=== PATIENT | male | born 1945 | race Caucasian/White ===

== ENCOUNTER → 2017-05-17 | Outpatient (CLI) | payer OTHER ==
--- NOTE | 2017-05-21 09:43 | RADRPT ---
EXAM DATE/TIME: 05/17/2017 11:54 [facility] COMPARISON : No previous studies available for comparison. INDICATIONS : Consult for LEFT renal cryo-ablation The patient's MRI of the abdomen from [facility] dated March 05, 2017 r eveals a 2.5 cm solid heterogeneous mass arising from the lower pole of the left kidney. The lesion d oes appear appropriate for and amenable to biopsy with concomitant cryoablation treatment which is re commended. The patient will be scheduled as requested. Mello Dejesus MD on May 21, 2017 at 9:33 Board Certified Radiologist. This report was verified electronically.
== END ==
LOC: HRAD 11:16
PROVIDERS: ATTEND Urology
DX: N28.89 Other specified disorders of kidney and ureter (principal)

== ENCOUNTER 2017-06-01 05:59 | Day surgery (SDC) | payer OTHER ==
[2017-06-01] VITALS (9 sets, daily range): BP systolic 124–172; BP diastolic 69–85; PULSE 69–107; RESP 16–20; TEMP 97.7–98.2; O2SAT 93–99
[~2017-06-01] VITALS: Ht 165.1 cm; Wt 70.5 kg
[2017-06-01] MEDS ORDERED: INSU1.2I SQ (06:41)
[2017-06-01] MEDS ORDERED: LOSA100T2 PO (06:41)
[2017-06-01] MEDS ORDERED: ATOR20TA15 PO (06:41)
[2017-06-01] MEDS ORDERED: AMLO10TA2 PO (06:41)
[2017-06-01] MEDS ORDERED: METF1000 PO (06:41)
[2017-06-01] MEDS ORDERED: CENTCHW4 CHEW (06:41)
[2017-06-01] MEDS ORDERED: HYDR-755 PO (06:41)
[2017-06-01] MEDS ORDERED: NOVOLOGP2 SQ (06:41)
[2017-06-01] MEDS ORDERED: FENO2.5C PO (06:41)
[2017-06-01] MEDS ORDERED: INSULIN HUMAN REGULAR 1,000 UNITS/10 ML VIAL SQ PRN (07:00)
[2017-06-01] MEDS ORDERED: SODIUM CHLORID 0.9% 500 ML IV PRN (07:00)
[2017-06-01] MEDS ORDERED: SODIUM CHLOR 0.9% 1000 ML INJ 1,000 ML IV SCH (07:00)
[2017-06-01] MEDS ORDERED: METOPROLOL TARTRATE 25 MG TAB PO PRN (07:00)
[2017-06-01] MEDS ORDERED: POVIDONE IODINE 5% (ANTISEPSIS KIT) 4 APPLICATIONS EACH NARE PRN (07:00)
[2017-06-01] MEDS ORDERED: LACTATED RINGER'S 1000 ML IV PRN (07:00)
[2017-06-01] MEDS ORDERED: CHLORHEXIDINE GLUCONATE 2 % 1 PACK (2 CLOTHS) TOPICAL PRN (07:00)
[2017-06-01 07:10] LABS: BASOPHIL # 0.1 TH/MM3 (0-0.2); BASOPHIL % 0.5 % (0.0-2.0); EOSINOPHIL # 0.5 TH/MM3 (0-0.4); EOSINOPHIL % 4.4 % (0.0-4.0); HEMATOCRIT 38.2 % (39.0-51.0); LYMPH % 24.1 % (9.0-44.0); MEAN CELL VOLUME 63.5 FL (80.0-100.0); MEAN CORPUSCULAR HEMOGLOBIN 19.4 PG (27.0-34.0); MEAN CORPUSCULAR HGB CONC 30.5 % (32.0-36.0); MONO % 6.2 % (0.0-8.0); NEUT % 64.8 % (16.0-70.0); PLATELET COUNT 487 TH/MM3 (150-450); RED BLOOD COUNT 6.02 MIL/MM3 (4.50-5.90); RED CELL DISTRIBUTION WIDTH 15.3 % (11.6-17.2); WHITE BLOOD COUNT 12.4 TH/MM3 (4.0-11.0)
[2017-06-01 07:12] LABS: HEMO FLAGS AUTO DIFF
[2017-06-01] MEDS ORDERED: ceFAZolin 2 GM PREMIX 50 ML IV SCH (07:15)
[2017-06-01 07:21] LABS: APTT (PATIENT) 28.5 SEC (24.3-30.1); PROTHROMBIN TIME - PATIENT 10.9 SEC (9.8-11.6)
[2017-06-01 07:22] LABS: BICARBONATE 26.2 MEQ/L (21.0-32.0); POTASSIUM 4.1 MEQ/L (3.5-5.1)
[2017-06-01 07:41] LABS: BASOPHILS 1 % (0-2); EOSINOPHILS 8 % (0-4); METAMYELOCYTES 4 % (0-1); MYELOCYTES 2 % (0-0); NEUTROPHIL # MANUAL DIFF 7.9 TH/MM3 (1.8-7.7); POLYS (SEG NEUTROPHILS) 58 % (16-70); WBC DIFF SAMPLE 100
[2017-06-01 07:42] LABS: SCAN/DIFF FINAL DIFF MANUAL
[2017-06-01 07:43] LABS: OVALOCYTES 1+ (NORMAL); PLATELET ESTIMATE SMEAR HIGH (NORMAL); PLATELET MORPHOLOGY NORMAL (NORMAL)
[2017-06-01 07:44] LABS: ACANTHOCYTES OCC (NORMAL); KERATOCYTES OCC (NORMAL)
[2017-06-01] MEDS ORDERED: LIDOCAINE 1%/EPINEPHrine 1:100,000 SOLN 20 ML VIAL ONE (08:30)
--- NOTE | 2017-06-01 08:43 | EKG ---
Date Performed: 06/01/2017 Time Performed: 07:19:45 PTAGE: 71 years EKG: Sinus rhythm POSSIBLE INFERIOR MYOCARDIAL INFARCTION , PROBABLY OLD BORDERLINE ECG NO PREVIOUS TRACING DOCTOR: Tyler Da Silva Interpretating Date/Time 06/01/2017 08:41:53
--- NOTE | 2017-06-01 13:28 | PD.RAD ---
Post CT Procedure Prog Note Pre Procedure Diagnosis: (1) Renal carcinoma (2) Left renal mass Post Procedure Diagnosis: (1) Renal carcinoma (2) Left renal mass Procedure Date: Jun 01, 2017 Supervising Radiologist: Mello Dejesus Anesthesia: General Plan of Activity Patient to Unit: PACU Patient Condition: Good See PACS Report for procedural detail/treatment Mello Dejesus MD Jun 01, 2017 13:28
[2017-06-01] MEDS ORDERED: HYDROmorphone HCL 2 MG TAB PO PRN (13:30)
[2017-06-01] MEDS ORDERED: DO NOT ADM ANY ANTICOAGULANT DRUGS PRN (13:30)
[2017-06-01 14:18] LABS: BASOPHIL # 0.1 TH/MM3 (0-0.2); BASOPHIL % 0.3 % (0.0-2.0); EOSINOPHIL # 0.1 TH/MM3 (0-0.4); EOSINOPHIL % 0.4 % (0.0-4.0); HEMATOCRIT 33.8 % (39.0-51.0); LYMPHOCYTE # 1.1 TH/MM3 (1.0-4.8); MEAN CELL VOLUME 64.1 FL (80.0-100.0); MEAN CORPUSCULAR HEMOGLOBIN 19.4 PG (27.0-34.0); MEAN CORPUSCULAR HGB CONC 30.3 % (32.0-36.0); MONO % 2.1 % (0.0-8.0); NEUT % 92.2 % (16.0-70.0); PLATELET COUNT 450 TH/MM3 (150-450); RED BLOOD COUNT 5.27 MIL/MM3 (4.50-5.90); RED CELL DISTRIBUTION WIDTH 15.2 % (11.6-17.2); WHITE BLOOD COUNT 22.8 TH/MM3 (4.0-11.0)
[2017-06-01 14:21] LABS: HEMO FLAGS AUTO DIFF
[2017-06-01 14:49] LABS: BANDS 8 % (0-6); EOSINOPHILS 1 % (0-4); METAMYELOCYTES 1 % (0-1); PLATELET ESTIMATE SMEAR NORMAL (NORMAL); PLATELET MORPHOLOGY NORMAL (NORMAL); POLYS (SEG NEUTROPHILS) 83 % (16-70); SCAN/DIFF FINAL DIFF MANUAL; WBC DIFF SAMPLE 100
[2017-06-01 14:50] LABS: OVALOCYTES 1+ (NORMAL)
[2017-06-01 16:07] LABS: AUTOMATED NEUTROPHIL # 24.5 TH/MM3 (1.8-7.7); BASOPHIL # 0.1 TH/MM3 (0-0.2); BASOPHIL % 0.2 % (0.0-2.0); EOSINOPHIL % 0.1 % (0.0-4.0); LYMPH % 4.1 % (9.0-44.0); LYMPHOCYTE # 1.1 TH/MM3 (1.0-4.8); MEAN CELL VOLUME 63.1 FL (80.0-100.0); MEAN CORPUSCULAR HEMOGLOBIN 19.1 PG (27.0-34.0); MEAN CORPUSCULAR HGB CONC 30.3 % (32.0-36.0); MONO % 2.4 % (0.0-8.0); NEUT % 93.2 % (16.0-70.0); PLATELET COUNT 430 TH/MM3 (150-450); RED BLOOD COUNT 5.22 MIL/MM3 (4.50-5.90); WHITE BLOOD COUNT 26.3 TH/MM3 (4.0-11.0)
--- NOTE | 2017-06-01 16:08 | RADRPT ---
EXAM DATE/TIME: 06/01/2017 10:12 INDICATIONS : Left renal mass. Anesthesia and pain control was provided by the Anesthesia department. Prophylactic antibiotics were administered with appropriate pre-procedure timing. DEVICE(S): 1.) PERC 17 cryoablation probes x4 MEDICAL HISTORY : Hypertension. Diabetes mellitus type 2. Renal insufficiency, chronic. SURGICAL HISTORY : None. ENCOUNTER: Initial ACUITY: 1 day PAIN SCORE: 0/10 LOCATION: Left flank PROCEDURE : 1. CT guided cryoablation. Under sterile conditions and using aseptic technique with CT guidance the mass was localized and sati sfactory approach was taken to access the lesion. Using automated exposure control and adjustment of the mA and/or kV according to patient size, radiation dose was kept as low as reasonably achievable to obtain optimal diagnostic quality images. DICOM format image data is available electronically for review and comparison. [employer] Cryoprobes were employed using percutaneous technique employing the prescribed probes. A total of 4 probe were placed. A freeze-thaw, freeze-thaw technique was employed and serial imaging demonstrated an ice ball encompassing the entire lesion. Post procedure images demonstrate expected postoperative changes with mild posterior perinephric hematoma. The patient was rescanned 5 minutes following the initial post procedure scan to document stability of the hematoma. The patient tolerate d the procedure well and was taken to anesthesia recovery in stable satisfactory condition. CONCLUSION: CT guided cryoablation treatment of left renal mass as described in detail above. A small perinephric hematoma resulted during the treatment. Mello Dejesus MD on June 01, 2017 at 16:01 Board Certified Radiologist. This report was verified electronically.
[2017-06-01 16:09] LABS: HEMO FLAGS AUTO DIFF
[2017-06-01 16:40] LABS: BANDS 9 % (0-6); MYELOCYTES 3 % (0-0); NEUTROPHIL # MANUAL DIFF 24.7 TH/MM3 (1.8-7.7); POLYS (SEG NEUTROPHILS) 82 % (16-70); SCAN/DIFF FINAL DIFF MANUAL; WBC DIFF SAMPLE 100
[2017-06-01 16:43] LABS: OVALOCYTES 1+ (NORMAL); PLATELET ESTIMATE SMEAR NORMAL (NORMAL); PLATELET MORPHOLOGY NORMAL (NORMAL)
== END 2017-06-01 17:00 | disposition home or self-care (01) ==
LOC: HRIP 05:59 → HRAD 05:59
PROVIDERS: ATTEND Urology
DX: N28.89 Other specified disorders of kidney and ureter (principal); I10 Essential (primary) hypertension; E11.9 Type 2 diabetes mellitus without complications; I12.9 Hypertensive chronic kidney disease with stage 1 through stage 4 chronic kidney disease, or unspecified chronic kidney disease; E11.22 Type 2 diabetes mellitus with diabetic chronic kidney disease; N18.9 Chronic kidney disease, unspecified
CPT/HCPCS: 50593; 77013; 80048; 82948; 85007; 85027; 85610; 85730; 93005; C2618; J0690; J3010; J7030; J7040

== ENCOUNTER 2017-06-08 13:22 | Day surgery (SDC) | payer OTHER ==
[~2017-06-08 13:22] MED LIST: AMLO10TA2 PO; ATOR20TA15 PO; CENTCHW4 CHEW; FENO2.5C PO; HYDR-755 PO; INSU1.2I SQ; LOSA100T2 PO; METF1000 PO; NOVOLOGP2 SQ
--- NOTE | 2017-06-08 15:02 | RADRPT ---
EXAM DATE/TIME: 06/08/2017 13:30 [facility] COMPARISON : No previous studies available for comparison. INDICATIONS : FOLLOW UP RENAL CRYOABLATION OBJECTIVE: Temperature: 98.8 Heart Rate: 100 Blood Pressure: 157/60 Respiratory: 18 Oximetry: 99 HISTORY OF PRESENT ILLNESS: The patient underwent cryoablation treatment for biopsy-proven left renal cell carcinoma on June 01. 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 Since the procedure, the patient experienced some left-s ided flank and back pain which has gotten progressively less severe. He also complains of fatigue wit h ambulation. He has not experienced any hematuria. No fevers chills or sweats. PAST MEDICAL HISTORY : Hypertension. Diabetes mellitus type 1. Renal cell carcinonma. Hypercholesterolemia. [place] PAST SURGICAL HISTORY : SOCIAL HISTORY : NKDA AMLODPINE 10 mg q.d. ATORVASTIN 20 mg q.d. FENOFIBRATE 20 mg q.d. NOVOLOG INJ 30 units TOUJEO INJ 30 units t.i.d. LOSARTAN 100-25 mg q.d. METFORMIN 1000 mg b.i.d. MULTIVITAMIN 1 TAB q.d. PHYSICAL EXAMINATION: Left flank procedure site is intact with no tenderness or palpitations. No swelling bruising or eryth howie. Abdomen is soft and nontender. Lower extremity pulses, strength and sensation are normal. ASSESSMENT: The patient is doing reasonably well following cryoablation treatment of left renal cell carcinoma. PLAN: He is scheduled to undergo some lab work within the next week and I have asked the patient to have e lab results forwarded to me in addition to the ordering physician. He will need followup imaging, ideally with pre-and postcontrast renal protocol MRI to be initially p erformed in 3 months. Mello Dejesus MD on June 08, 2017 at 14:54 Board Certified Radiologist. This report was verified electronically.
== END 2017-06-08 14:00 | disposition home or self-care (01) ==
LOC: HROP 13:22 → HRIP 13:25 → HROP 14:00
PROVIDERS: ATTEND Radiology Body Imaging
DX: C64.2 Malignant neoplasm of left kidney, except renal pelvis (principal)